=== PATIENT | male | born 1950 | race Caucasian/White ===

== ENCOUNTER 2016-11-11 07:18 | Emergency (ER) | payer OTHER, MEDICARE ==
[~2016-11-11] VITALS: Ht 182.9 cm; Wt 98.9 kg
[2016-11-11 07:50] VITALS: BP 144/68
--- NOTE | 2016-11-11 08:11 | ED SKIN/ALLERGY COMPLAINT ---
History of Present Illness General Chief Complaint: Animal/Insect Bite Stated Complaint: ? BUG BITES Source: patient, old records Exam Limitations: no limitations Vital Signs & Intake/Output Vital Signs & Intake/Output Vital Signs Date Time Temp Pulse Resp B/P B/P Pulse O2 O2 Flow FiO2 Mean Ox Delivery Rate 11/11 0750 98.7 84 20 144/68 97 Allergies Coded Allergies: MDX - Aspirin (ASPIRIN) (Intermediate, GI DISTRESS 08/28/13) MDX - Acetaminophen (From APAP) (N/V 08/28/13) Triage Note: C/O INSECT BITE TO R FOREARM X X 2 DAYS. AREA RED AND SWOLLEN. HAS BEEN USING CORTISONE CREAM. Triage Nurses Notes Reviewed? yes HPI: Patient presents with an itchy rash to his right forearm. The rash started 2 days ago. The rash is spreading but staying on his right forearm. Patient denies any fevers or chills. There is no pain. Past History Travel History Traveled to [place] past 21 day No Medical History Any Pertinent Medical History? see below for history Neurological: NEUROPATHY R SIDE OF BODY MIGRAINES Cardiovascular: hypertension, hyperlipidemia Musculoskeletal: osteoarthritis Pneumonia Vaccine: 02/27/05 Influenza Vaccine: 03/30/08 Surgical History Surgical History: non-contributory Psychosocial History Who do you live with Spouse Services at Home None What is your primary language Thai Tobacco Use: Never used ETOH Use: occasional use Illicit Drug Use: marijuana, (MEDICAL) Family History Hx Contributory? No Review of Systems Review of Systems Constitutional: Reports: no symptoms. Respiratory: Reports: no symptoms. Cardiovascular: Reports: no symptoms. Skin: Reports: see HPI, rash. Neurological/Psychological: Reports: no symptoms. Immunologic/Allergic: Reports: no symptoms. Physical Exam Physical Exam General Appearance: well developed/nourished, alert, awake Eyes: Bilateral: PERRL, EOMI. Neck: normal inspection, supple, full range of motion Respiratory: normal breath sounds, chest non-tender, no respiratory distress, lungs clear Cardiovascular: regular rate/rhythm, normal peripheral pulses Neurologic/Psych: no motor/sensory deficits, awake, alert, oriented x 3 Skin: rash Skin Problem Location: upper extremities Skin Problem Character: patchy Progress Differential Diagnosis: contact dermatitis Plan of Care: STEROID CREAM Departure Departure Disposition: HOME OR SELF CARE Condition: Stable Clinical Impression Primary Impression: Contact dermatitis Qualifiers: Contact dermatitis type: unspecified Contact dermatitis trigger: unspecified trigger Qualified Code: L25.9 - Unspecified contact dermatitis, unspecified cause Referrals: KARINE JORDAN,ALEN Hill (PCP/Family) Additional Instructions: RETURN FOR ANY CONCERNS Departure Forms: Customer Survey General Discharge Information
== END 2016-11-11 08:15 ==
LOC: ERH 07:18
DX: L25.9 Unspecified contact dermatitis, unspecified cause (principal)